=== PATIENT | female | born 1985 | race African-American/Black ===

== ENCOUNTER 2022-04-05 20:30 | Emergency (ER) | payer MEDICAID ==
[~2022-04-05] VITALS: Ht 172.7 cm; Wt 74.8 kg
[2022-04-05 20:43] VITALS: BP 137/90
--- NOTE | 2022-04-05 20:48 | NUR ---
Patient ambulated to bed 11.
--- NOTE | 2022-04-05 21:07 | NUR ---
36 Y/O FEMALE BIBS FROM HOME, C/O URINARY FREQ W/ DIFFUSE LOWER ABD PAIN X1 YR. PT STATES SHE HAS HAD THE SYMPTOMS PROGRESSING FOR OVER A YEAR. DENIES N/V/D, COUGH, FEVER, SOB, OR CP. A/OX4, AMBULATORY, UNLABORED BREATHING. DENIES DYSURIA OR BLOOD IN URINE. DENIES HX/RX NKA
--- NOTE | 2022-04-05 22:10 | NUR ---
Dr. Victor examining patient.
[2022-04-05] MEDS ORDERED: CEPH-588 PO (22:24)
[2022-04-05 22:36] VITALS: BP 135/91
--- NOTE | 2022-04-05 22:37 | NUR ---
Patient discharged with v/s stable. Written and verbal after care instructions given and explained. Patient alert, oriented and verbalized understanding of instructions. Ambulatory with steady gait. All questions addressed prior to discharge. ID band removed. Patient advised to follow up with PMD. Rx of KEFLEX given. Patient educated on indication of medication including possible reaction and side effects. Opportunity to ask questions provided and answered. VSS, A/OX4, UNLABORED BREATHING, AMBULATORY, AND CALM DEMEANOR.
== END 2022-04-05 22:35 | disposition home or self-care (01) ==
LOC: MED 20:30
DX: R30.0 Dysuria (principal); N39.0 Urinary tract infection, site not specified
CPT/HCPCS: 81002; 81025; 99283